=== PATIENT | male | born 1945 | race Caucasian/White ===

== ENCOUNTER 2017-02-08 20:04 | Inpatient (IN) | payer MEDICARE ==
[~2017-02-08] VITALS: Ht 172.7 cm; Wt 83.5 kg
[~2017-02-08 20:04] MED LIST: ACET-783; ALBU18HF2 IH; ATOR20TA27 PO; GLIM2TAB3 PO; ISOS30TA6 PO; LISI-621 PO; METO-64 PO; OFLO5DRO OP
--- OUTSIDE RECORDS SUMMARY | 2017-02-08 20:11 | XMS REPORT | Referral Summary ---
Author Author [facility] Organization [facility] Address Unknown Phone Unavailable Care Team Providers Care Retail Team Member Name Role Phone Monika sIsa Primary Care Physician [phone] Encounter [facility] [id number] Date(s): 01/08/17 - 01/08/17 [facility] [address] [place] [address] Discharge Diagnosis: Carotid artery stenosis, unilateral Discharge Diagnosis: Emphysema lung Discharge Diagnosis: Diabetes mellitus, type II Discharge Diagnosis: Pure hypercholesterolemia Discharge Diagnosis: Benign essential hypertension Discharge Diagnosis: Occlusion and stenosis of right carotid artery Discharge Diagnosis: CAD (coronary artery disease) Discharge Disposition: 01-Home or Self Care Attending Physician: Chang Issa MD Admitting Physician: Chang Issa MD Vital Signs Most recent to 1 oldest [Reference Range]: Temperature Tympanic 36.0 degC [36.6-38.1 degC] *LOW* (01/08/17 8:50 AM) Peripheral Pulse 72 bpm Rate [60-100 bpm] (01/08/17 8:50 AM) Respiratory Rate 16 br/min [14-20 br/min] (01/08/17 8:50 AM) Blood Pressure 154/74 mmHg [90-140/60-90 mmHg] *HI* (01/08/17 8:50 AM) Problem List Condition Effective Dates Status Health Status Informant Benign essential Active hypertension (disorder)(Confirmed ) Cardiac Active disorder(Confirmed)1 Carotid artery Active stenosis, unilateral(Confirmed ) Cerebrovascular Resolved accident(Confirmed) COPD (chronic Resolved obstructive pulmonary disease)(Confirmed) Chronic pain of Active multiple joints(Confirmed) CAD (coronary artery Active disease)(Confirmed) Diverticulitis(Confi Resolved rmed) Hx of Active CABG(Confirmed) Hyperlipidemia(Confi Resolved rmed) Hypertension(Confirm Resolved ed) Emphysema Active NEC(Confirmed) Pure Active hypercholesterolemia (disorder)(Confirmed ) Seizure Resolved disorder(Confirmed) Tremors of nervous Resolved system(Confirmed) Diabetes mellitus, Active type II(Confirmed) Type 2 diabetes Active mellitus(Confirmed) 1Problem added automatically by system based on initiation of Cardiac Output/ Ineffective Cardiac Perfusion Plan of Care Allergies, Adverse Reactions, Alerts No Known Medication Allergies Medications amLODIPine 5 mg oral tablet 5 mg 1 tabs, Oral, BID, # 180 tabs, 3 Refill(s), Pharmacy: [id number], 1 tabs Oral BID Start Date: 03/20/16 Status: Ordered aspirin 81 mg oral delayed release tablet 81 mg 1 tabs, Oral, Daily, 0 Refill(s) Start Date: 06/23/15 Status: Ordered atorvastatin 40 mg oral tablet 40 mg 1 tabs, Oral, Daily, # 90 tabs, 0 Refill(s), Pharmacy: [facility] [id number], 1 tabs Oral Daily Start Date: 10/23/16 Status: Ordered glimepiride 4 mg oral tablet 4 mg 1 tabs, Oral, Daily, # 90 tabs, 3 Refill(s), Pharmacy: [facility] [id number], 1 tabs Oral Daily Start Date: 01/08/17 Status: Ordered lisinopril 20 mg oral tablet See Instructions, TAKE ONE TABLET BY MOUTH ONCE DAILY, # 90 tabs, 1 Refill(s), eRx: [facility] [id number], TAKE ONE TABLET BY MOUTH ONCE DAILY Start Date: 07/17/16 Status: Ordered metoprolol succinate 100 mg oral tablet, extended release 100 mg 1 tabs, Oral, Daily, # 90 tabs, 1 Refill(s), Pharmacy: [facility] [id number] Start Date: 01/15/16 Stop Date: 07/13/16 Status: Ordered nitroglycerin 0.4 mg sublingual tablet 0.4 mg 1 tabs, SubLingual, q5min, as needed for chest pain, # 25 tabs, 3 Refill( s), Pharmacy: [facility] [id number], 1 tabs SubLingual q5min,PRN:as needed for chest pain Start Date: 04/18/15 Status: Ordered Stiolto Respimat 2.5 mcg-2.5 mcg inhalation aerosol See Instructions, INHALE TWO PUFFS BY MOUTH EVERY 24 HOURS, # 4 unknown unit, eRx: [facility] [id number], INHALE TWO PUFFS BY MOUTH EVERY 24 HOURS Start Date: 06/27/16 Status: Ordered Tylenol Extra Strength PM 500 mg-25 mg oral tablet 4 tabs, Oral, BID, Pain Mild (1-3), 1-4 Mostly at bedtime., 0 Refill(s) Start Date: 06/13/15 Status: Ordered Ventolin HFA 90 mcg/inh inhalation aerosol See Instructions, INHALE TWO PUFFS BY MOUTH 4 TIMES DAILY NEEDED, # 3 Each, 2 Refill(s), Pharmacy: [id number], INHALE TWO PUFFS BY MOUTH 4 TIMES DAILY NEEDED Start Date: 02/04/16 Status: Ordered Xopenex 0.63 mg/3 mL inhalation solution 0.63 mg 3 mL, NEB, q8hr, dx copd J44.1, # 48 Each, 3 Refill(s), Pharmacy: [id number], 3 mL NEB q8hr,Instr:dx copd J44.1 Start Date: 06/27/16 Status: Ordered Results Chemistry Most recent to 1 oldest [Reference Range]: Sodium Lvl [135-144 138 mEq/L mEq/L] (01/08/17 9:45 AM) Potassium Lvl 4.1 mEq/L [3.5-5.2 mEq/L] (01/08/17 9:45 AM) Chloride [99-111 106 mEq/L mEq/L] (01/08/17 9:45 AM) CO2 [23-31 mEq/L] 26 mEq/L (01/08/17 9:45 AM) AGAP [3-20] 6 (01/08/17 9:45 AM) BUN [8-26 mg/dL] 18 mg/dL (01/08/17 9:45 AM) Glucose Lvl [70-99 120 mg/dL mg/dL] *HI* (01/08/17 9:45 AM) Creatinine Lvl 0.86 mg/dL [0.72-1.25 mg/dL] (01/08/17 9:45 AM) eGFR [>60 mL/min] >60 mL/min 1 (01/08/17 9:45 AM) Calcium Lvl 9.7 mg/dL 2 [8.4-10.2 mg/dL] (01/08/17 9:45 AM) Albumin Lvl [3.4-4.8 4.4 gm/dL gm/dL] (01/08/17 9:45 AM) Total Protein 6.9 gm/dL [6.0-7.6 gm/dL] (01/08/17 9:45 AM) Globulin [1.8-4.0 2.5 gm/dL gm/dL] (01/08/17 9:45 AM) ALT [0-55 U/L] 46 U/L (01/08/17 9:45 AM) AST [5-34 U/L] 23 U/L (01/08/17 9:45 AM) Alk Phos [40-150 99 U/L U/L] (01/08/17 9:45 AM) Bili Total [0.2-1.2 0.7 mg/dL mg/dL] (01/08/17 9:45 AM) Chol [0-199 mg/dL] 140 mg/dL (01/08/17 9:45 AM) Trig [0-149 mg/dL] 139 mg/dL (01/08/17 9:45 AM) HDL [40-84 mg/dL] 42 mg/dL (01/08/17 9:45 AM) LDL [0-130 mg/dL] 70 mg/dL (01/08/17 9:45 AM) VLDL Cholesterol 28 mg/dL [0-28 mg/dL] (01/08/17 9:45 AM) Cardiac Risk 3.3 [0.0-5.7] (01/08/17 9:45 AM) Hgb A1c [4.1-5.6 %] 6.5 % *HI* (01/08/17 9:45 AM) eAvg Glucose 139.9 mg/dL (01/08/17 9:45 AM) 1Result Comment: Multiply eGFR results by 1.21 for race. 2Result Comment: Please note reference range change effective 12/26/2016. Immunizations Given and Recorded Vaccine Date Status Refusal Reason pneumococcal 23-polyvalent vaccine 01/08/17 Given Procedures Procedure Date Related Diagnosis Body Site Bypass Graft Coronary Artery1 06/19/15 Cholecystectomy 08/12/10 Colon resection & colostomy due to ruptured 2001 diverticulum Colostomy-reversal 2001 Arthroscopic meniscectomy2 Inguinal hernia-rt Resection, colon Rotator cuff 1auto-populated from documented surgical case 2pt does not recall which knee Social History Social History Type Response Smoking Status Former smoker; Type: Cigarettes; Tobacco use per day: 1 Pack ; Number of years: 501 1quit 6 yrs ago Assessment and Plan Extracted from: Title: Office Visit Note Author: Chang Issa MD Date: 01/08/17 Assessment/Plan 1.CAD (coronary artery disease) Chronic and stable with no signs of angina or ischemia. No change in current treatment is recommended. He may exercise without restriction if he develops chest pain he shouldlet us know. Ordered: Comprehensive Metabolic Panel Lipid Panel Office Visit Level 4 Est 60261 2.Carotid artery stenosis, unilateral, Chronic relatively stable no change in current treatment at this time. Occlusion and stenosis of right carotid artery Ordered: Comprehensive Metabolic Panel Lipid Panel Office Visit Level 4 Est 97818 3.Diabetes mellitus, type II Glucometers of been stable we will checkfasting lab today along with an A1c. No change in current treatment is recommended. I did changes glimepiride to 4 mg be taken once in the morning instead of 2 tablets of 2 mg daily. Six-month follow-up encouraged. Will let them know of lab is problematic. Ordered: Comprehensive Metabolic Panel Hemoglobin A1c Lipid Panel Office Visit Level 4 Est 97009 4.Pure hypercholesterolemia Chronic appears relatively stable. Fasting labs ordered for today. Ordered: Comprehensive Metabolic Panel Lipid Panel Office Visit Level 4 Est 57922 5.Benign essential hypertension Blood pressures well-controlled no change in current treatment is recommended. Ordered: Comprehensive Metabolic Panel Lipid Panel Office Visit Level 4 Est 68014 6.Emphysema lung Chronic and stable on current treatment. He continues to follow up with pulmonology as well. No change in current treatment is recommended. I did recommendpneumonia vaccination. He initially refused we talked about the rationale in light of hisother chronic health problems and he ultimately agreed to have a Pneumovax today. That was administered.
--- OUTSIDE RECORDS SUMMARY | 2017-02-08 20:11 | XMS REPORT | Continuity of Care Document ---
Author Author [facility] Organization [facility] Address Unknown Phone Unavailable Care Team Providers Care Hand Drawer In Helper Name Role Phone MARISOL SINGH MD Primary Care Physician [phone] Insurance Providers Guarantor Alicia Parham Address [address] [place] [address] Email [email or web address] [facility] [employer]hum[employer] Gold Hmo Policy Number [id number] Subscriber's Name PrasadAlicia Eaton Relationship 18 Self Chief Complaint and Reason for Visit Chief Complaint Eye Problems Reason for Visit [id number] Problems Active Problems Medical Problem Onset Date Status Finger laceration Unknown Acute Past Problems Medical Problem Onset Date Acute right eye pain Unknown Medications Current Home Medications Medication Dose Units Route Directions Days Qty Instructions Start Date Acetaminophen (Tylenol) 325 Mg Tablet As Needed 03/30/11 Albuterol Sulfate (Ventolin Hfa) 18 Gm Hfa.aer.ad 18 Gm Inhalation As Needed 08/18/12 Atorvastatin Calcium 20 Mg Tablet 20 Mg Oral Daily 09/14/12 Glimepiride 2 Mg Tablet 1 Tab Oral Give With Breakfast BEST TAKEN WITH BREAKFAST. 06/13/15 Isosorbide Mononitrate (Isosorbide Mononitrate Er) 30 Mg Tab.er.24h 1 Tab Oral Daily 06/13/15 Lisinopril 20 Mg Tablet 1 Tab Oral Daily 06/13/15 Metoprolol Succinate (Toprol Xl) 50 Mg Tab.sr.24h 50 Mg Oral Daily 09/14/12 Ofloxacin 5 Ml Drops 1 Drop Ophthalmic Every 2-4 Hours 5 Days [address] Todd Barrow [facility] [address] [phone] 09/17/16 Past Home Medications Medication Directions Ordered Status Amlodipine Besylate/Benazepril (Amlodipine-Benazepril 10-40 Mg) 1 Each Capsule , 1 Each Oral Daily 08/18/12 Discontinued Amlodipine Besylate/Benazepril (Lotrel 10/20 Capsule) 1 Cap Capsule, 1 Cap Oral Daily 08/12/10 Discontinued Aspirin 325 Mg Tablet, 650 Mg Oral Daily 08/12/10 Discontinued Chlorthalidone 25 Mg Tablet, 25 Mg Oral Daily 08/18/12 Discontinued Clopidogrel Bisulfate (Plavix) 75 Mg Tablet, 75 Mg Oral Daily 09/14/12 Discontinued Hydrocodone Bit/Acetaminophen (Lortab 5) 1 Tab Tablet, 1 Tab Oral As Needed 04/23/11 Discontinued Hydrocodone Bit/Acetaminophen (Lortab 7.5-500 Tablet) 1 Tab Tablet, 1 Tab Oral As Needed 08/12/10 Discontinued Lortab 7.5 , 01/31/09 Discontinued Lotrel , Daily 01/31/09 Discontinued Social History Social History Problem Response Recorded Date/Time Onset Date Status Chewing Tobacco Status No 09/18/2012 9:32am Not Applicable Not Applicable Hx Substance Use No 04/02/2016 11:30pm Not Applicable Not Applicable Hx Alcohol Use No 04/02/2016 11:30pm Not Applicable Not Applicable Has the pt used tobacco in the last 12 months No 06/13/2015 12:34pm Not Applicable Not Applicable Tobacco Usage none 04/02/2016 11:33pm Not Applicable Not Applicable Hospital Discharge Instructions No hospital discharge instructions. Plan of Care Discharge Date 09/17/16 10:43am Disposition 01 DISCHARGED HOME, SELF-CARE Condition at Discharge Stable Instructions/Education Provided DI for Red Eye How to Use Eyedrops DI for Foreign Body in the Eye Prescriptions See Medication Section Referrals MARISOL SINGH MD Address: [address] [place] [id number] EARL HAWK MD Address: [address] [place] [address] [phone] Additional Instructions/Education Call eye Dr to follow this week. Use Ocuflox drops as directed in right eye. If vision worsening or pain worsening, go to Dr or Emergency Department. Functional Status No functional status results. Allergies, Adverse Reactions, Alerts Allergen Type Severity Reaction Status Last Updated No Known Drug Allergies Allergy Unknown Active 09/17/16 Immunizations Query Response on File Recorded Date/Time Hx Influenza Vaccination No 06/13/15 12:34pm Hx Pneumococcal Vaccination No 06/13/15 12:34pm Hx Influenza Vaccination No 06/13/15 12:34pm Influenza Vaccine Hx CURRENT 09/17/16 10:09am Tdap Vaccine Hx UNKNOWN 04/02/16 11:29pm Vital Signs Acute Vital Signs Vital Response Date/Time Temperature (Fahrenheit) 96.2 deg F (96.8 - 99.1) 09/17/2016 10:07am Temperature (Calculated Celsius) 35.56905 degrees C (36.0 - 37.3) 09/17/2016 10:07am Pulse Rate (adult) 60 bpm (60 - 100) 09/17/2016 10:07am Respiratory Rate 24 breaths/min (10 - 20) 09/17/2016 10:07am O2 Sat by Pulse Oximetry 95 % (90 - 100) 09/17/2016 10:07am Blood Pressure 146/78 mm Hg 09/17/2016 10:07am Height (Inches) 67.20 inches 09/17/2016 10:07am Weight (Kilograms) 89.600 kg 09/17/2016 10:07am Body Mass Index (BMI) 30.0 09/17/2016 10:07am Results No known relevant diagnostic tests, laboratory data and/or discharge summary. Procedures Procedure Status Date Provider(s) EEG AWAKE AND ASLEEP Completed 07/29/16 Encounters Encounter Location Arrival/Admit Date Discharge/Depart Date Attending Provider Departed Emergency Room [facility] 09/17/16 9:59am 09/17/16 10: 43am KRYSTAL OSORIO APRN Registered Clinic [facility] 07/29/16 1:58pm MICHAEL WILCOX MD Recent Diagnosis
--- OUTSIDE RECORDS SUMMARY | 2017-02-08 20:12 | XMS REPORT | Continuity of Care Document ---
Author Author [facility] Organization [facility] Address Unknown Phone Unavailable Allergies Active Description Code Type Severity Reaction Onset Reported/Identified Relationship to Patient Clinical Status Yes No Known Medication Allergies NKMA N/A N/A 05/05/2014 Yes No Known Medication Allergies NKMA N/A N/A 05/05/2014 Medications Medication Packaging Start Date Stop Date Route Dosage Sig vardenafil(Levitra 20 mg oral tablet) 1 tabs 05/04/20142013 Oral 20 mg 1 tabs, Oral, Daily, PRN: as needed for erectile dysfunction meclizine(Antivert 50 mg oral tablet) 1 tabs 05/04/20142013 Oral 50 mg 1 tabs, Oral, BID, 30 tabs, PRN: as needed for nausea/vomiting metFORMIN(Glumetza 500 mg oral tablet, extended release) 2 tabs 05/04/2014 05/05/2014 Oral 1,000 mg 2 tabs, Oral, BID amLODIPine(amLODIPine 10 mg oral tablet) 1 tabs 05/04/2014 Oral 10 mg 1 tabs, Oral, Daily levETIRAcetam(Keppra 500 mg oral tablet) 0.4 tabs 05/04/2014 Oral 200 mg 0.4 tabs, Oral, QID atorvastatin(atorvastatin 20 mg oral tablet) 1 tabs 05/04/2014 02/27/2015 Oral 20 mg 1 tabs, Oral, Bedtime (once a day) clopidogrel(Plavix 75 mg oral tablet) 1 tabs 05/04/20142013 Oral 75 mg 1 tabs, Oral, Daily albuterol(Ventolin HFA 90 mcg/inh inhalation aerosol) 2 puffs 05/04/2014 07/03/2014 Inhalation 2 puffs, Inhalation, QID, PRN: as needed for wheezing glimepiride(glimepiride 2 mg oral tablet) 1 tabs 05/05/201410/2015 Oral 2 mg 1 tabs, Oral, Daily, 30 tabs albuterol(Ventolin HFA 90 mcg/inh inhalation aerosol) 07/03/2014 07/31/2014 See Instructions, INHALE TWO PUFFS 4 TIMES DAILY NEEDED, 18 unknown unit albuterol(Ventolin HFA 90 mcg/inh inhalation aerosol) 07/31/2014 10/24/2014 See Instructions, INHALE TWO PUFFS 4 TIMES DAILY NEEDED, 18 unknown unit aspirin(Aspir-Low 81 mg oral delayed release tablet) 1 tabs 09/20/2014 06/13/2015 Oral 81 mg 1 tabs, Oral, Daily, 30 tabs albuterol(Ventolin HFA 90 mcg/inh inhalation aerosol) 10/24/2014 12/04/2014 See Instructions, INHALE TWO PUFFS 4 TIMES DAILY NEEDED, 18 unknown unit sildenafil(Viagra 100 mg oral tablet) 1 tabs 02/22/20152014 Oral 100 mg 1 tabs, Oral, Daily, 2 tabs, PRN: as needed for erectile dysfunction atorvastatin(atorvastatin 40 mg oral tablet) 1 tabs 04/18/2015 06/13/2015 Oral 40 mg 40 mg=1 tabs, Oral, Daily, 90 tabs, 6 Refill(s) lisinopril(lisinopril 10 mg oral tablet) 1 tabs 04/18/2015 Oral 10 mg 10 mg=1 tabs, Oral, Daily, 90 tabs, 6 Refill(s) clopidogrel(Plavix 75 mg oral tablet) 1 tabs 04/18/20152014 Oral 75 mg 75 mg=1 tabs, Oral, Daily, 90 tabs, 6 Refill(s) nitroglycerin(nitroglycerin 0.4 mg sublingual tablet) 1 tabs 04/18/2015 SubLingual 0.4 mg 0.4 mg=1 tabs, SubLingual, q5min, PRN: as needed for chest pain, 25 tabs, 3 Refill(s) clopidogrel(Plavix 75 mg oral tablet) 1 tabs 04/18/20152014 Oral 75 mg 75 mg=1 tabs, Oral, Daily, 90 tabs, 6 Refill(s) isosorbide mononitrate(Imdur 30 mg oral tablet, extended release) 1 tabs 201406/13/2015 Oral 30 mg 30 mg=1 tabs, Oral, qAM, 90 tabs, 0 Refill(s) lisinopril(lisinopril 20 mg oral tablet) 1 tabs 05/22/2015 Oral 20 mg 20 mg=1 tabs, Oral, Daily, for 30 days, 30 tabs, 6 Refill(s) atorvastatin(atorvastatin 40 mg oral tablet) 1 tabs 06/13/2015 07/25/2016 Oral 40 mg 40 mg=1 tabs, Oral, Bedtime (once a day), 0 Refill(s) isosorbide mononitrate(isosorbide mononitrate 30 mg oral tablet, extended release) 1 tabs 06/13/2015 06/23/2015 Oral 30 mg 30 mg=1 tabs, Oral, qAM, 0 Refill(s) lisinopril(lisinopril 20 mg oral tablet) 1 tabs 06/13/201506/2016 Oral 20 mg 20 mg=1 tabs, Oral, Daily, 0 Refill(s) clopidogrel(clopidogrel 75 mg oral tablet) 1 tabs 06/13/2015 Oral 75 mg 75 mg=1 tabs, Oral, Daily, 0 Refill(s) glimepiride(glimepiride 2 mg oral tablet) 2 tabs 06/13/2015 Oral 4 mg 4 mg=2 tabs, Oral, BID, 0 Refill(s) albuterol(Ventolin HFA 90 mcg/inh inhalation aerosol) 2 puffs 06/13/2015 07/09/2015 Inhalation 2 puffs, Inhalation, QID, PRN: as needed for wheezing, 0 Refill(s) labetalol(labetalol) 1 tabs 06/13/2015 06/19/2015 Oral 100 mg 100 mg=1 tabs, Oral, BID acetaminophen-diphenhydrAMINE(Tylenol Extra Strength PM 500 mg-25 mg oral tablet) 4 tabs 06/13/2015 Oral 4 tabs, Oral, BID, 1-4 Mostly at bedtime., PRN: Pain Mild (1-3), 0 Refill(s) amLODIPine(Norvasc) 1 tabs 06/13/2015 06/19/2015 Oral 5 mg 5 mg=1 tabs, Oral, Daily pseudoephedrine(Sudafed) 06/13/2015 09/27/2015 Oral 30 mg 30 mg , Oral, q4hr, PRN: congestion, 0 Refill(s) morphine(morphine) 1 mL 06/13/2015 06/19/2015 IV Push 2 mg 2 mg= 1 mL, IV Push, q5min, PRN: Angina/Chest Pain nitroglycerin(nitroglycerin) 1 tabs 06/13/2015 06/19/2015 SubLingual 0.4 mg 0.4 mg=1 tabs, SubLingual, q5min, PRN: Angina/Chest Pain enoxaparin(Lovenox) 0.9 mL 06/13/2015 06/15/2015 SubCutaneous 90 mg 90 mg=0.9 mL, SubCutaneous, q12hr aspirin(aspirin) 1 tabs 06/13/2015 06/19/2015 Oral 81 mg 81 mg= 1 tabs, Oral, Daily atorvastatin(atorvastatin) 1 tabs 06/13/2015 06/19/2015 Oral 40 mg 40 mg=1 tabs, Oral, Bedtime (once a day) isosorbide mononitrate(isosorbide mononitrate) 1 tabs 06/13/2015 06/19/2015 Oral 30 mg 30 mg=1 tabs, Oral, qAM glimepiride(glimepiride) 1 tabs 06/13/2015 06/18/2015 Oral 2 mg 2 mg=1 tabs, Oral, Daily albuterol(albuterol CFC free 90 mcg/inh inhalation aerosol ) 2 puffs 06/14/2015 06/15/2015 Inhalation 180 mcg 180 mcg=2 puffs, Inhalation, q4hr , PRN: Bronchospasms hydrALAZINE(hydrALAZINE) 0.5 mL 06/14/2015 06/19/2015 IV Push 10 mg 10 mg=0.5 mL, IV Push, q4hr, PRN: Hypertension/High Blood Pressure polyethylene glycol 3350(MiraLax) 1 packets 06/15/20152014 Oral 17 g 17 g=1 packets, Oral, BID allopurinol(Zyloprim) 2 tabs 06/17/2015 06/19/2015 Oral 600 mg 600 mg=2 tabs, Oral, Once acetaminophen(acetaminophen) 1 supp 06/17/2015 06/19/2015 Rectal 650 mg 650 mg=1 supp, Rectal, q4hr, PRN: Pain Mild (1-3) zolpidem(Ambien) 1 tabs 06/17/2015 06/19/2015 Oral 5 mg 5 mg=1 tabs, Oral, Bedtime (once a day), PRN: Insomnia insulin aspart(NovoLOG) 0.07 mL 06/18/2015 06/18/2015 SubCutaneous 7 units 7 units=0.07 mL, SubCutaneous, Once insulin aspart(NovoLOG) 0.07 mL 06/18/2015 06/18/2015 SubCutaneous 7 units 7 units=0.07 mL, SubCutaneous, Once metoclopramide(Reglan) 1 tabs 06/19/2015 06/23/2015 IV Push 10 mg 10 mg=1 tabs, IV Push, q6hr, PRN: Nausea HYDROcodone-acetaminophen(Flushing 5 mg-325 mg oral tablet) 06/19/2015 06/23/2015 Oral 1-2 tabs, Oral, q4hr, PRN: Pain Moderate (4-6) docusate(Colace) 2 caps 06/19/2015 06/23/2015 Oral 200 mg 200 mg=2 caps, Oral, Daily albuterol(albuterol CFC free 90 mcg/inh inhalation aerosol ) 6 puffs 06/19/2015 06/19/2015 Inhalation 540 mcg 540 mcg=6 puffs, Inhalation, q4hr (scheduled), PRN: Wheezing morphine(morphine) 06/19/2015 06/19/2015 IV Push 2-4 mg, IV Push, q2hr, PRN: Pain Severe (7-10) ondansetron(Zofran) 2 mL 06/19/2015 06/23/2015 IV Push 4 mg 4 mg= 2 mL, IV Push, q6hr, PRN: Nausea glucagon(glucagon) 1 mL 06/19/2015 06/21/2015 IntraMuscular 1 mg 1 mg=1 mL, IntraMuscular, As Indicated, PRN: Hypoglycemia/Low Blood Sugar Al hydroxide/Mg hydroxide/simethicone(Maalox Advanced Maximum Strength oral suspension) 15 mL 06/19/2015 06/23/2015 Oral 15 mL, Oral, q4hr, PRN: GERD/Heartburn Sodium Chloride 0.9%(Sodium Chloride 0.9% 250 mL) 250 mL 06/19/2015 06/21/2015 IV 10 mL/hr, IV polyethylene glycol 3350(MiraLax) 1 packets 06/19/20152014 Oral 17 g 17 g=1 packets, Oral, Daily albuterol(albuterol 5 mg/mL (0.5%) inhalation solution) 0.5 mL 06/19/2015 06/19/2015 NEB 2.5 mg 2.5 mg=0.5 mL, NEB, q4hr (scheduled), PRN: Wheezing Dextrose 50% in Water(Dextrose 50% in Water Injection) 25 mL 06/19/2015 06/21/2015 IV Push 12.5 g 12.5 g=25 mL, IV Push, q15min, PRN: Hypoglycemia/Low Blood Sugar Dextrose 10% in Water(Dextrose 10% in Water 250 mL) 250 mL 06/19/2015 06/21/2015 IV 50 mL/hr, IV senna(Senokot) 1 tabs 06/19/2015 06/23/2015 Oral 8.6 mg 8.6 mg=1 tabs, Oral, BID famotidine(Pepcid) 2 mL 06/19/2015 06/21/2015 IV Push 20 mg 20 mg =2 mL, IV Push, q12hr acetaminophen(acetaminophen) 1 supp 06/19/2015 06/21/2015 Rectal 650 mg 650 mg=1 supp, Rectal, q4hr, PRN: Fever aspirin(aspirin) 1 tabs 06/19/2015 06/23/2015 Oral 81 mg 81 mg= 1 tabs, Oral, Daily albuterol(albuterol 5 mg/mL (0.5%) inhalation solution) 0.5 mL 06/19/2015 06/20/2015 NEB 2.5 mg 2.5 mg=0.5 mL, NEB, q2hr (scheduled), PRN: Shortness of Breath/Wheezing HYDROmorphone(Dilaudid) 06/19/2015 06/23/2015 IV Push 0.5 mg- 1 mg, IV Push, q2hr, PRN: Pain Severe (7-10) ketorolac(Toradol) 1 mL 06/19/2015 06/19/2015 IV Push 15 mg 15 mg =1 mL, IV Push, Once ipratropium(ipratropium 500 mcg/2.5 mL inhalation solution ) 2.5 mL 06/20/2015 06/23/2015 NEB 0.5 mg 0.5 mg=2.5 mL, NEB, q2hr (scheduled), PRN: Other (See Comment) albuterol(albuterol 5 mg/mL (0.5%) inhalation solution) 0.5 mL 06/20/2015 06/23/2015 NEB 2.5 mg 2.5 mg=0.5 mL, NEB, q2hr (scheduled), PRN: Other (See Comment) ketorolac(Toradol) 1 mL 06/20/2015 06/21/2015 IV Push 15 mg 15 mg =1 mL, IV Push, q6hr atorvastatin(Lipitor) 1 tabs 06/20/2015 06/23/2015 Oral 10 mg 10 mg=1 tabs, Oral, Daily clopidogrel(Plavix) 1 tabs 06/20/2015 06/23/2015 Oral 75 mg 75 mg= 1 tabs, Oral, Daily insulin aspart(NovoLOG) 0.08 mL 06/20/2015 06/20/2015 SubCutaneous 8 units 8 units=0.08 mL, SubCutaneous, Once insulin aspart(NovoLOG) 0.08 mL 06/20/2015 06/21/2015 SubCutaneous 8 units 8 units=0.08 mL, SubCutaneous, With Dinner furosemide(Lasix) 2 mL 06/20/2015 06/20/2015 IV Push 20 mg 20 mg =2 mL, IV Push, Once potassium chloride(potassium chloride 10 mEq oral tablet, extended release) 1 tabs 06/20/2015 06/20/2015 Oral 10 mEq 10 mEq=1 tabs, Oral, Once insulin regular(insulin regular 100 units/mL human recombinant injectable solution) 0.04 mL 06/20/2015 06/21/2015 IV Push 4 units 4 units=0.04 mL, IV Push, Once insulin detemir(Levemir) 0.3 mL 06/20/2015 06/22/2015 SubCutaneous 30 units 30 units=0.3 mL, SubCutaneous, Bedtime (once a day) insulin aspart(NovoLOG) 0.1 mL 06/20/2015 06/23/2015 SubCutaneous 10 units 10 units=0.1 mL, SubCutaneous, TIDWM metoprolol(metoprolol succinate 50 mg oral tablet, extended release) 1 tabs 06/21/2015 06/21/2015 Oral 50 mg 50 mg=1 tabs, Oral, Once metoprolol(metoprolol succinate 100 mg oral tablet, extended release) 1 tabs 06/21/2015 06/23/2015 Oral 100 mg 100 mg=1 tabs, Oral, Daily lisinopril(lisinopril) 1 tabs 06/21/2015 06/23/2015 Oral 20 mg 20 mg=1 tabs, Oral, Daily baclofen(baclofen) 0.5 tabs 06/21/2015 06/22/2015 Oral 5 mg 5 mg=0.5 tabs, Oral, BID furosemide(Lasix) 2 mL 06/21/2015 06/23/2015 IV Push 20 mg 20 mg =2 mL, IV Push, q12hr potassium chloride(potassium chloride 20 mEq oral tablet, extended release) 1 tabs 06/21/2015 06/23/2015 Oral 20 mEq 20 mEq=1 tabs, Oral, BID nitroglycerin(Nitrostat 0.4 mg sublingual tablet) 1 tabs 06/21/2015 06/23/2015 SubLingual 0.4 mg 0.4 mg=1 tabs, SubLingual, q5min, PRN: Angina/ Chest Pain amLODIPine(amLODIPine) 1 tabs 06/22/2015 06/23/2015 Oral 5 mg 5 mg=1 tabs, Oral, Daily insulin aspart(NovoLOG) 0.12 mL 06/22/2015 06/22/2015 SubCutaneous 12 units 12 units=0.12 mL, SubCutaneous, Once sitaGLIPtin(Januvia) 1 tabs 06/22/2015 06/23/2015 Oral 100 mg 100 mg=1 tabs, Oral, Daily glimepiride(Amaryl) 1 tabs 06/22/2015 06/23/2015 Oral 2 mg 2 mg=1 tabs, Oral, With Breakfast insulin detemir(Levemir) 0.1 mL 06/22/2015 06/23/2015 SubCutaneous 10 units 10 units=0.1 mL, SubCutaneous, Bedtime (once a day) lactulose(lactulose) 30 mL 06/22/2015 06/23/2015 Oral 20 g 20 g= 30 mL, Oral, TID HYDROcodone-acetaminophen(Flushing 5 mg-325 mg oral tablet) 06/23/2015 07/04/2015 Oral 1-2 tabs, Oral, q4hr, PRN: Pain Moderate (4-6), 0 Refill (s) aspirin(aspirin 81 mg oral delayed release tablet) 1 tabs 06/23/2015 Oral 81 mg 81 mg=1 tabs, Oral, Daily, 0 Refill(s) amLODIPine(amLODIPine 5 mg oral tablet) 1 tabs 06/23/201512/31 Oral 5 mg 5 mg=1 tabs, Oral, Daily, 0 Refill(s) acetaminophen(acetaminophen 325 mg oral tablet) 2 tabs 06/23/2015 12/17/2015 Oral 650 mg 650 mg=2 tabs, Oral, q4hr, PRN: Fever, 0 Refill(s) sitaGLIPtin(Januvia 100 mg oral tablet) 1 tabs 06/23/201506/23 Oral 100 mg 100 mg=1 tabs, Oral, Daily, 0 Refill(s) sitaGLIPtin(Januvia 100 mg oral tablet) 1 tabs 06/23/201508/03 Oral 100 mg 100 mg=1 tabs, Oral, Daily, 30 tabs, 0 Refill(s) HYDROcodone-acetaminophen(Flushing 5 mg-325 mg oral tablet) 1 tabs 06/29/2015 07/29/2015 Oral 1 tabs, Oral, q6hr, for 30 days, PRN: as needed for pain, 120 tabs, 0 Refill(s) ALPRAZolam(Xanax 0.25 mg oral tablet) 1 tabs 07/10/20152014 Oral 0.25 mg 0.25 mg=1 tabs, Oral, BID, for 14 days, PRN: as needed for anxiety, 28 tabs, 0 Refill(s) HYDROcodone-acetaminophen(Flushing 5 mg-325 mg oral tablet) 1 tabs 08/31/2015 09/10/2015 Oral 1 tabs, Oral, TID, for 10 days, PRN: as needed for pain, 30 tabs, 0 Refill(s) metoprolol(metoprolol succinate 100 mg oral tablet, extended release) 1 tabs 09/27/2015 12/31/2015 Oral 100 mg 100 mg=1 tabs, Oral, Daily , for 90 days, 90 tabs, 2 Refill(s) HYDROcodone-acetaminophen(Flushing 5 mg-325 mg oral tablet) 1 tabs 09/27/2015 10/27/2015 Oral 1 tabs, Oral, BID, for 30 days, 60 tabs, 0 Refill(s ) indapamide(indapamide 1.25 mg oral tablet) 1 tabs 10/03/2015 Oral 1.25 mg 1.25 mg=1 tabs, Oral, Every other day, 30 tabs, 5 Refill(s) metoprolol(metoprolol succinate 100 mg oral tablet, extended release) 1 tabs 12/31/2015 01/15/2016 Oral 100 mg 100 mg=1 tabs, Oral, Daily , for 90 days, 90 tabs, 2 Refill(s) amLODIPine(amLODIPine 5 mg oral tablet) 1 tabs 12/31/201503/20 Oral 5 mg 5 mg=1 tabs, Oral, Daily, 90 tabs, 1 Refill(s) lisinopril(lisinopril 20 mg oral tablet) 1 tabs 12/31/2015 Oral 20 mg 20 mg=1 tabs, Oral, Daily, 90 tabs, 1 Refill(s) metoprolol(metoprolol succinate 100 mg oral tablet, extended release) 1 tabs 01/15/2016 01/22/2017 Oral 100 mg 100 mg=1 tabs, Oral, Daily , for 90 days, 90 tabs, 1 Refill(s) lisinopril(lisinopril 20 mg oral tablet) 1 tabs 01/15/2016 Oral 20 mg 20 mg=1 tabs, Oral, Daily, 90 tabs, 0 Refill(s) levalbuterol(Xopenex 0.63 mg/3 mL inhalation solution) 3 mL 05/07/2016 06/27/2016 NEB 0.63 mg 0.63 mg=3 mL, NEB, q8hr, dx copd J44.1, 48 Each, 3 Refill(s) tiotropium-olodaterol(Stiolto Respimat 2.5 mcg-2.5 mcg inhalation aerosol) 2 puffs 05/12/2016 06/27/2016 Inhalation 2 puffs, Inhalation, q24hr, 60 inhalers, 0 Refill(s) tiotropium-olodaterol(Stiolto Respimat 2.5 mcg-2.5 mcg inhalation aerosol) See Instructions, INHALE TWO PUFFS BY MOUTH EVERY 24 HOURS, 4 unknown unit lisinopril(lisinopril 20 mg oral tablet) 07/17/20162016 See Instructions, TAKE ONE TABLET BY MOUTH ONCE DAILY, 90 tabs, 1 Refill( s) glimepiride(glimepiride 4 mg oral tablet) 1 tabs 01/08/2017 Oral 4 mg 4 mg=1 tabs, Oral, Daily, 90 tabs, 3 Refill(s) pneumococcal 23-polyvalent vaccine(pneumococcal 23- polyvalent vaccine) 0.5 mL 01/08/2017 01/08/2017 IntraMuscular 0.5 mL, IntraMuscular , Once lisinopril(lisinopril 20 mg oral tablet) 01/22/2017 See Instructions, TAKE ONE TABLET BY MOUTH ONCE DAILY, 90 tabs, 1 Refill(s) traMADol(Ultram 50 mg oral tablet) 1 tabs 02/04/2017 Oral 50 mg 50 mg=1 tabs, Oral, q6hr, 60 tabs, 0 Refill(s) benzonatate(Tessalon Perles 100 mg oral capsule) 1 caps 02/04/2017 02/18/2017 Oral 100 mg 100 mg=1 caps, Oral, TID, for 14 days, PRN: as needed for cough, 42 caps, 0 Refill(s) azithromycin(Zithromax 250 mg oral tablet) 1 packets 02/04/2017 02/04/2017 Oral 1 packets, Oral, Once, as directed on package labeling, 6 tabs , 0 Refill(s) Problems Date Dx Coded Attending Type Code Diagnosis Diagnosed By 06/26/2015 Vini Joya MD Final 250.00 Diabetes mellitus without mention of complication, type II or unspecified t 06/26/2015 Vini Joya MD Final 272.0 PURE HYPERCHOLESTEROLEMIA 06/26/2015 Vini Joya MD Final 272.4 OTHER AND UNSPECIFIED HYPERLIPIDEMIA 06/26/2015 Vini Joya MD Final 285.1 ACUTE POSTHEMORRHAGIC ANEMIA 06/26/2015 Vini Joya MD Final 298.9 UNSPECIFIED PSYCHOSIS 06/26/2015 Vini Joya MD Final 401.1 BENIGN ESSENTIAL HYPERTENSION 06/26/2015 Vini Joya MD Final 414.01 CORONARY ATHEROSCLEROSIS OF [place] CORONARY ARTERY 06/26/2015 Vini Joya MD Final 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 06/26/2015 Vini Joya MD Final 440.0 ATHEROSCLEROSIS OF [place] 06/26/2015 Vini Joya MD Final 492.8 OTHER EMPHYSEMA 06/26/2015 Vini Joya MD Final 728.85 SPASM OF MUSCLE 06/26/2015 Vini Joya MD Final 793.11 Solitary Pulmonary Nodule Procedures Code Description Performed By Performed On 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 06/19/2015 Results Test Result Range Hemoglobin A1C - 01/08/17 09:45 Hemoglobin A1C 6.5 % 4.1-5.6 Estimated Average Glucose - 01/08/17 09:45 Estimated Average Glucose 139.9 mg/dL Comprehensive Metabolic Panel (CMP) - 01/08/17 09:45 Albumin 4.4 g/dL 3.4-4.8 Alkaline Phosphatase 99 U/L 40-150 ALT (SGPT) 46 U/L 0-55 Anion Gap 6 NA 3-20 AST (SGOT) 23 U/L 5-34 Bilirubin Total 0.7 mg/dL 0.2-1.2 BUN 18 mg/dL 8-26 Calcium 9.7 mg/dL 8.4-10.2 Chloride 106 mEq/L 99-111 CO2 26 mEq/L 23-31 Creatinine 0.86 mg/dL 0.72-1.25 Globulin 2.5 g/dL 1.8-4.0 Glucose 120 mg/dL 70-99 Potassium 4.1 mEq/L 3.5-5.2 Protein 6.9 g/dL 6.0-7.6 Sodium 138 mEq/L 135-144 Lipid Panel - 01/08/17 09:45 Cardiac Risk 3.3 0.0-5.7 Cholesterol 140 mg/dL 0-199 HDL Cholesterol 42 mg/dL 40-84 LDL Cholesterol 70 mg/dL 0-130 Triglycerides 139 mg/dL 0-149 VLDL Cholesterol 28 mg/dL 0-28 eGFR - 01/08/17 09:45 eGFR >60 mL/min >60 Influenza A and B - 02/04/17 14:38 Influenza A Negative NA Negative Influenza B Negative NA Negative Encounters ACCT No. Visit Date/Time Discharge Status Pt. Type Provider Facility Loc./Unit Complaint [id number] 02/22/2014 07:58:00 02/22/2014 23 :59:59 CLS Outpatient [id number] 02/15/2014 13:00:00 02/15/2014 23 :59:59 CLS Outpatient [id number] 01/04/2014 08:50:00 01/04/2014 23 :59:59 CLS Outpatient
[2017-02-08] MEDS ORDERED: ATOR40TA64 PO (20:19)
[2017-02-08] MEDS ORDERED: ALBU18HF2 PO (20:19)
[2017-02-08] MEDS ORDERED: GLIM4TAB3 PO (20:19)
[2017-02-08] MEDS ORDERED: BENZ-16 PO (20:22)
[2017-02-08] MEDS ORDERED: LEVA0.6310 AEROSOL (20:22)
[2017-02-08] MEDS ORDERED: AMLO5TAB2 PO (20:22)
[2017-02-08] MEDS ORDERED: TRAM50TA4 PO (20:22)
[2017-02-08] MEDS ORDERED: METO-279 PO (20:22)
[2017-02-08] MEDS ORDERED: AZIT250T6 PO (20:23)
[2017-02-08] MEDS ORDERED: ACET-62 PO (20:24)
[2017-02-08] MEDS ORDERED: ALBUTEROL/IPRATROPIUM INHAL. 2.5mg-0.5mg/3ml Neb. AEROSOL ONE (20:30)
--- NOTE | 2017-02-08 20:30 | ERPDOC ---
Departure Disposition Decision Date: Feb 08, 2017 Disposition Decision Time: 21:58 Disposition: 01 DISCHARGED HOME, SELF-CARE Impression Impression Impression: Primary Impression: Hypoxia Additional Impression: COPD exacerbation Severity: Moderate Condition: Stable Seen By: Mid-level only Referrals: MARISOL SINGH MD (PCP) EARL HAWK MD (Family) Problems/Meds/Labs Reviewed?: Yes Medications reviewed and manag: Yes Follow up care ordered?: Yes Mental Status: Alert, Oriented HPI - Dyspnea General Chief Complaint: Dyspnea/Respdistress Stated Complaint: DIFFICULTY BREATHING Time Seen by Provider: 20:10 Source: patient Exam Limitations: no limitations HPI - Dyspnea Initial Comments He presents to Er today for c/o SOA. This has been ongoing for the last 5 days. Has not improved despite use of his inhaler and nebulizer machine. He did have a temp up to 102 when it started. Saw his PCP in the office and was given Rx for Zithromax which he did complete and also Tessalon Perles. He has had a productive cough. Has a history of COPD and has been hospitalized for this in the past. His O2 today upon arrival to Er was 84% on RA. He does not wear O2 at home. Occurred At: home Onset/Timing: Gradual Duration: other (Over the last 5 days) Severity: moderate Prior Episodes/Possible Cause: occasional episodes Associated Symptoms: cough, fever/chills (fever when this all started up to 102 ), shortness of breath, weakness, DENIES: chest pain, diaphoresis, headaches, loss of appetite, malaise, nausea/vomiting, rash, seizure, syncope Aspirin Treatment Today: unknown Hx of Similar Symptoms: Yes Allergies: Coded Allergies: No Known Drug Allergies (Verified Allergy, Unknown, 09/17/16) Past History Past Medical History Metabolic: hypertension Respiratory: COPD Neurological: CVA Surgical History General: gallbladder Joint: shoulder Family History Family PMH: FOUND: GA, diabetes, hypertension Vaccines Hx Influenza Vaccination: No Hx Pneumococcal Vaccination: No Social History # of Years: 49 Substance Use Type: does not use Alcohol Intake: none Review of Systems Constitutional Constitutional: fever, weakness, DENIES: chills, dizziness, fatigue ENMT Sinuses: congestion, rhinorrhea Mouth/Throat: DENIES: painful swallowing, scratchy throat, sore throat Cardiovascular Cardiac: DENIES: chest pain, orthopnea Rhythm/Rate: DENIES: irregular beat, palpitations Pulmonary Respiratory: cough, dyspnea, sputum, DENIES: tachypnea GI Upper Abdomen: DENIES: nausea, pain, vomiting Lower Abdomen: DENIES: constipation, diarrhea, pain Integumentary Skin: DENIES: rash Neurological General: DENIES: headache, numbness, tingling, weakness Physical Exam General General Nourishment: well nourished, well developed, appears stated age, no acute distress, adult General Body Habitus: well groomed Vitals and Pain First Documented Vital Signs Date Time Temp Pulse Resp B/P Pulse Ox O2 Delivery O2 Flow Rate FiO2 02/08/17 20:06 97.5 83 32 174/76 86 Room Air 02/08/17 20:10 3.00 Weight: Kilograms: 87.900 Height (feet): 5 Height (inches): 8.00 Triage Pain Scale: RN VS reviewed by Provider: Yes Normal Exams: Neck: Full range of motion, without adenopathy, JVD, bruits or thyromegaly CV: Regular rate and rhythm, without murmur or gallop, Pulses 2+ all extremities, capillary refill, <2 seconds all ext., no pedal edema noted Abdomen: Bowel sounds positive, soft, non-tender, non-distended, no hepatosplenomegaly, masses or bruits noted Lymphatic: No lymphadenopathy, or lymphedema noted Integumentary: No rashes, hives, or bruising noted Neurologic: Patient is alert, and oriented Psychiatric: Patient exhibits, appropriate attention, emotion and affect Respiratory (brief) Respiratory: FOUND: other (Diminished throughout. Is 93% on 3 L per NC, is able to speak in complete sentences, In no respiratory distress.) Differential Diagnoses Considering: Acute Bronchitis, Acute GA, Acute Respiratory Failure, COPD Exacerbation, Influenza, Pneumonia Progress Results/Orders Orders Procedure Category Date Status Time EKG EKG 02/08/17 Logged Cbc W/Auto LAB 02/08/17 Complete Diff-Reflex Manual Bmp - Basic Metabolic LAB 02/08/17 Complete Panel Iv Lock (Ed Only) EDM 02/08/17 Transmitted 20:21 Chest, Pa & Lateral RAD 02/08/17 Taken Troponin I W LAB 02/08/17 Complete Hemolysis Index Methylprednisolone PHA 02/08/17 Complete Sod Succ (Solu-Medrol 20:30 Albuterol/Ipratropium PHA 02/08/17 Complete (Duoneb) 20:30 Albuterol Sulfate PHA 02/08/17 Complete (Proventil 2.5 Mg/3 Ml 21:30 Place In Facility As: ADMIT 02/08/17 Transmitted Lab Results Laboratory Tests Test 02/08/17 20:30 White Blood Count 5.0T/MM3 Red Blood Count 5.22M/MM3 Hemoglobin 15.5GM/DL Hematocrit 45.2% Mean Corpuscular Volume 86.6UM3 Mean Corpuscular Hemoglobin 29.7UUG Mean Corpuscular Hemoglobin Concent 34.3GM/DL RDW Standard Deviation 39.8FL Platelet Count 178T/MM3 Mean Platelet Volume 10.0UM3 Immature Granulocyte % (Auto) 0.2% Neutrophils (%) (Auto) 63.7% Lymphocytes (%) (Auto) 25.5% Monocytes (%) (Auto) 7.6% Eosinophils (%) (Auto) 2.8% Basophils (%) (Auto) 0.2% Absolute Immature Granulocyte (auto 0.01T/MM3 Absolute Neutrophils (auto) 3.2T/MM3 Absolute Lymphocytes (auto) 1.3T/MM3 Absolute Monocytes (auto) 0.4T/MM3 Absolute Eosinophils (auto) 0.1T/MM3 Absolute Basophils (auto) 0.0T/MM3 Turbidity < 20 Sodium Level 147MEQ/L Potassium Level 4.8MEQ/L Chloride Level 109MEQ/L Carbon Dioxide Level 23MEQ/L Anion Gap 15MEQ/L Blood Urea Nitrogen 22.0MG/DL Creatinine 0.9MG/DL Glomerular Filtration Rate Calc 83 BUN/Creatinine Ratio 24RATIO Glucose Level 118MG/DL Calculated Osmolality 286MOSM/KG Calcium Level 9.4MG/DL Icterus Index < 2 Troponin I < 0.012ng/ml Chemistry Specimen Hemolysis 62 Medications Current ED Medications Methylprednisolone Sodium Succinate (Solu-Medrol) 125 mg O ONCE IV Last administered on 02/08/17 20:40; Start 02/08/17 at 20:30; Stop 02/08/17 at 20:31 ; Status DC Albuterol/ Ipratropium (Duoneb) 3 ml O ONCE AEROSOL Last administered on 20:45; Start 02/08/17 at 20:30; Stop 3/19/17 at 20:31; Status DC Albuterol Sulfate (Proventil 2.5 Mg/3 ml) 2.5 mg O ONCE AEROSOL Last administered on 02/08/17t 21:34; Start 02/08/17 at 21:30; Stop 02/08/17 at 21:31 ; Status DC Progress Progress CBC, BMP, and troponin today are normal. Chest xray without pneumonia. He does feel improved after Duoneb and solumedrol. Did repeat Albuterol treatment. Lung sounds have improved but still a little diminished. Did attempt to take him off of the O2 but his sats did fall to 86% on Ra. Spoke with Dr Boogie and he will accept for admission at this time. Xray Xray : Reason for Exam: dyspnea Xray: CXR PA/Lat Interpretation: Normal FELIPE RIOJAS APRN Feb 08, 2017 20:30
[2017-02-08 20:37] LABS: BASOPHILS % (AUTO) 0.2 % (0-2); EOSINOPHILS # (AUTO) 0.1 T/MM3 (0-0.5); EOSINOPHILS % (AUTO) 2.8 % (0-4); HCT - HEMATOCRIT 45.2 % (41-53); HGB - HEMOGLOBIN 15.5 GM/DL (13.5-17.5); IMMATURE GRANULOCYTE # (AUTO) 0.01 T/MM3 (0.00-0.03); IMMATURE GRANULOCYTE % (AUTO) 0.2 % (0.0-0.5); LYMPHOCYTES # (AUTO) 1.3 T/MM3 (1-4.8); LYMPHOCYTES % (AUTO) 25.5 % (23-45); MEAN CORPUSCULAR HGB 29.7 UUG (26-34); MEAN CORPUSCULAR HGB CONC(MCHC 34.3 GM/DL (31-37); MEAN CORPUSCULAR VOLUME 86.6 UM3 (80-100); MONOCYTES # (AUTO) 0.4 T/MM3 (0-0.8); MONOCYTES % (AUTO) 7.6 % (0-9.0); NEUTROPHILS #(AUTO)-ABSOLUTE 3.2 T/MM3 (1.8-7.7); NEUTROPHILS % (AUTO) 63.7 % (33-66); RED BLOOD COUNT 5.22 M/MM3 (4.50-5.90)
[2017-02-08 20:45] LABS: ANION GAP 15 MEQ/L (5-15); BUN/CREATININE RATIO 24 RATIO (6-26); CALCIUM 9.4 MG/DL (8.4-10.2); CHLORIDE 109 MEQ/L (98-107); CO2 - CARBON DIOXIDE 23 MEQ/L (22-30); CREATININE 0.9 MG/DL (0.8-1.5); GLOMERULAR FILTRATION RATE 83; GLUCOSE 118 MG/DL (75-110); POTASSIUM 4.8 MEQ/L (3.6-5); SODIUM 147 MEQ/L (134-144)
--- NOTE | 2017-02-08 20:48 | NUR ---
RT IN WITH PT
--- OUTSIDE RECORDS SUMMARY | 2017-02-08 20:51 | XMS REPORT | Continuity of Care Document ---
Author Author [facility] Organization [facility] Address Unknown Phone Unavailable Allergies Active Description [...] mg=1 tabs, IV Push, q6hr, PRN: Nausea HYDROcodone-acetaminophen([place] 5 mg-325 mg oral tablet) 06/19/2015 06/23/2015 [...] g 20 g= 30 mL, Oral, TID HYDROcodone-acetaminophen([place] 5 mg-325 mg oral tablet) 06/23/2015 07/04/2015 [...] tabs, Oral, Daily, 30 tabs, 0 Refill(s) HYDROcodone-acetaminophen([place] 5 mg-325 mg oral tablet) 1 tabs 06/29/2015 07/29/2015 Oral 1 tabs, Oral, q6hr, for 30 days, PRN: as needed for pain, 120 tabs, 0 Refill(s) ALPRAZolam(Xanax 0.25 mg oral tablet) 1 tabs 07/10/20152014 Oral 0.25 mg 0.25 mg=1 tabs, Oral, BID, for 14 days, PRN: as needed for anxiety, 28 tabs, 0 Refill(s) HYDROcodone-acetaminophen([place] 5 mg-325 mg oral tablet) 1 tabs 08/31/2015 09/10/2015 Oral 1 tabs, Oral, TID, for 10 days, PRN: as needed for pain, 30 tabs, 0 Refill(s) metoprolol(metoprolol succinate 100 mg oral tablet, extended release) 1 tabs 09/27/2015 12/31/2015 Oral 100 mg 100 mg=1 tabs, Oral, Daily , for 90 days, 90 tabs, 2 Refill(s) HYDROcodone-acetaminophen([place] 5 mg-325 mg oral tablet) 1 tabs [...] Joya MD Final 414.01 CORONARY ATHEROSCLEROSIS OF [place] CORONARY ARTERY 06/26/2015 Vini Joya MD Final [...] Status Pt. Type Provider Facility Loc./Unit Complaint [id number] 02/22/2014 07:58:00 02/22/2014 23 :59:59 CLS Outpatient [id number] 02/15/2014 13:00:00 02/15/2014 23 :59:59 CLS Outpatient [id number] 01/04/2014 08:50:00 01/04/2014 23 :59:59 CLS Outpatient
[2017-02-08] MEDS ORDERED: ALBUTEROL INH.SOLN. 2.5mg/3ml (0.083%) Neb. AEROSOL ONE (21:30)
--- OUTSIDE RECORDS SUMMARY | 2017-02-08 22:39 | XMS REPORT | Continuity of Care Document ---
Author Author [facility] Organization [facility] Address Unknown Phone Unavailable Allergies Active Description [...] mg=1 tabs, IV Push, q6hr, PRN: Nausea HYDROcodone-acetaminophen([place] 5 mg-325 mg oral tablet) 06/19/2015 06/23/2015 [...] g 20 g= 30 mL, Oral, TID HYDROcodone-acetaminophen([place] 5 mg-325 mg oral tablet) 06/23/2015 07/04/2015 [...] tabs, Oral, Daily, 30 tabs, 0 Refill(s) HYDROcodone-acetaminophen([place] 5 mg-325 mg oral tablet) 1 tabs 06/29/2015 07/29/2015 Oral 1 tabs, Oral, q6hr, for 30 days, PRN: as needed for pain, 120 tabs, 0 Refill(s) ALPRAZolam(Xanax 0.25 mg oral tablet) 1 tabs 07/10/20152014 Oral 0.25 mg 0.25 mg=1 tabs, Oral, BID, for 14 days, PRN: as needed for anxiety, 28 tabs, 0 Refill(s) HYDROcodone-acetaminophen([place] 5 mg-325 mg oral tablet) 1 tabs 08/31/2015 09/10/2015 Oral 1 tabs, Oral, TID, for 10 days, PRN: as needed for pain, 30 tabs, 0 Refill(s) metoprolol(metoprolol succinate 100 mg oral tablet, extended release) 1 tabs 09/27/2015 12/31/2015 Oral 100 mg 100 mg=1 tabs, Oral, Daily , for 90 days, 90 tabs, 2 Refill(s) HYDROcodone-acetaminophen([place] 5 mg-325 mg oral tablet) 1 tabs [...] Joya MD Final 414.01 CORONARY ATHEROSCLEROSIS OF [place] CORONARY ARTERY 06/26/2015 Vini Joya MD Final [...] Status Pt. Type Provider Facility Loc./Unit Complaint [id number] 02/22/2014 07:58:00 02/22/2014 23 :59:59 CLS Outpatient [id number] 02/15/2014 13:00:00 02/15/2014 23 :59:59 CLS Outpatient [id number] 01/04/2014 08:50:00 01/04/2014 23 :59:59 CLS Outpatient
--- NOTE | 2017-02-08 22:54 | NUR ---
ADMIT JASMIN RN ASSIGNS ROOM 140 TO PT WITH YEVGENIY MORA THE NURSE
--- NOTE | 2017-02-08 23:06 | NUR ---
REPORT GIVEN TO YEVGENIY MORA
--- NOTE | 2017-02-08 23:15 | NUR ---
Admit Pt brought to room by wheelchair from ED on 2 L O2. Ambulated self from wheelchair to bed. Oriented to hospital environment. Will continue to monitor.
[2017-02-08 23:19] VITALS: Ht 172.7 cm; Wt 83.5 kg
[2017-02-08 23:27] VITALS: BP 171/78; PULSE 76; RESP 28; TEMP 97.4; O2SAT 91
[2017-02-08 23:40] VITALS: PULSE 76; RESP 28
[2017-02-09] VITALS (9 sets, daily range): BP systolic 146–172; BP diastolic 71–87; PULSE 82–99; RESP 18–20; TEMP 95.6–96.6; O2SAT 90–95
--- NOTE | 2017-02-09 00:25 | NUR ---
Pt agitation Pt agitated that Dr. Staton is not available immediately. Notified Dr. Staton and asked for diet order. He oked a regular diet. Water, warm milk, and refrigerator meal given to patient. Pt calmed down and appreciated the food. Will continue to monitor.
[2017-02-09] MEDS ORDERED: HYDROCODONE/APAP 5 mg/325 mg TABLET PO PRN (03:45)
[2017-02-09] MEDS ORDERED: ONDANSETRON 4mg/2ml INJECTION IV PRN (03:45)
--- NOTE | 2017-02-09 03:56 | HPPDOC ---
HPI - Adult Date DATE: 02/09/17 TIME: 03:47 General Chief Complaint: cough soa History of Present Illness very pleasant 71 y/o M PTER with increasing SOA and cough since the past Thu. He did see his primary care physician this past week he received Z-Efra and Tessalon Perles.He came in [facility] b/c his cough and soa got to the point he couldn't get any air back in after he was breathing out, it "terrified him" In the ER he got 125 mg IV solumedrol and nebs and is feelign better. He does have known COPD but does not usually need supplemental O2. He was found to be saturating 84% on room air in the emergency room., his sputum has been clear and frothy. He denies chest pain or any known cardiovascular problems as far as heart failure. He did get a coronary bypass surgery as a preventative "as he had chest pain 2 years ago what sounds like angina at that time. Past Medical History Past Medical History coronary artery disease status post CABG COPD, diabetes mellitus type 2, hypertension, hyperlipidemia. Hx CVA Surgical History Patient's Surgical History: stenin in left carotid artery, Coronary bypass surgery cholecystectomy meniscal knee surgery hernia repair rotator cuff surgery 2. A large intestinal tear that was repaired and then reconstructed Current Medications Home Meds Reported Medications Acetaminophen (Acetaminophen) 500 Mg Tablet, 1000 MG PO Q8H Y for PAIN 02/08/17 Azithromycin (Azithromycin) 250 Mg Tablet, 250 MG PO DAILY TAKE TWO TABLETS ON DAY ONE, THEN ONE TABLET DAILY UNTIL ALL TAKEN. 02/08/17 Levalbuterol HCl (Levalbuterol HCl) 0.63 Mg/3 Ml Vial.neb, 0.63 MG AEROSOL PRN 02/08/17 Tramadol HCl (Tramadol HCl) 50 Mg Tablet, 50 MG PO QID Y for PAIN 02/08/17 Amlodipine Besylate (Amlodipine Besylate) 5 Mg Tablet, 5 MG PO BID 02/08/17 Benzonatate (Benzonatate) 100 Mg Capsule, 100 MG PO TID Y for COUGH 02/08/17 Metoprolol Succinate (Metoprolol Succinate) 100 Mg Tab.er.24h, 100 MG PO DAILY 02/08/17 Glimepiride (Glimepiride) 4 Mg Tablet, 4 MG PO DAILY 02/08/17 Atorvastatin Calcium (Atorvastatin Calcium) 40 Mg Tablet, 40 MG PO HS 02/08/17 Albuterol Sulfate (Ventolin HFA 90 mcg/actuation) 18 Gm Hfa.aer.ad, 1 PUFF PO PRN 02/08/17 Lisinopril (Lisinopril) 20 Mg Tablet, 20 MG PO DAILY 06/13/15 Allergies: Coded Allergies: No Known Drug Allergies (Verified Allergy, Unknown, 02/08/17) Family History Family History: nc based on age Social History Smoking Status: Former smoker ( 28-saox-qfvb history, quit smoking 8 years ago.) # of Years: 50 Substance Use Type: does not use Alcohol Intake: none Advance Directives: Yes Full Code, No DPOA for Healthcare Only Review of Systems All Other Systems All Other Systems: Reviewed (remainder of 10-point ROS Neg.) Physical Exam General General Nourishment: apparent age Vital Signs Vital Signs Date Time Temp Pulse Resp B/P Pulse Ox O2 Delivery O2 Flow Rate FiO2 02/08/17 23:40 76 28 02/08/17 23:27 97.4 171/78 91 Nasal Cannula 2.00 Height (Feet): 5 Height (Inches): 8.00 Eyes Brief: FOUND: PERRL Respiratory Brief: FOUND: equal bilaterally Comments Impaired movement bilaterally Cardiovascular (brief) Cardiac Brief: FOUND: pedal edema, regular rate, regular rhythm Abdomen (brief) Abdominal Brief: FOUND: BS normo active x4, soft, NOT FOUND: tender Neurologic (brief) Neurological Brief: FOUND: cranial 2-12 intact, motor, sensory, NOT FOUND: facial droop Neurologic RN Documented GCS Eye Opening: Verbal: Motor: Total: Psychiatric (brief) FOUND: alert, oriented Laboratory Laboratory Tests Test 02/08/17 20:30 White Blood Count 5.0T/MM3 Red Blood Count 5.22M/MM3 Hemoglobin 15.5GM/DL Hematocrit 45.2% Mean Corpuscular Volume 86.6UM3 Mean Corpuscular Hemoglobin 29.7UUG Mean Corpuscular Hemoglobin Concent 34.3GM/DL RDW Standard Deviation 39.8FL Platelet Count 178T/MM3 Mean Platelet Volume 10.0UM3 Immature Granulocyte % (Auto) 0.2% Neutrophils (%) (Auto) 63.7% Lymphocytes (%) (Auto) 25.5% Monocytes (%) (Auto) 7.6% Eosinophils (%) (Auto) 2.8% Basophils (%) (Auto) 0.2% Absolute Immature Granulocyte (auto 0.01T/MM3 Absolute Neutrophils (auto) 3.2T/MM3 Absolute Lymphocytes (auto) 1.3T/MM3 Absolute Monocytes (auto) 0.4T/MM3 Absolute Eosinophils (auto) 0.1T/MM3 Absolute Basophils (auto) 0.0T/MM3 Turbidity < 20 Sodium Level 147MEQ/L Potassium Level 4.8MEQ/L Chloride Level 109MEQ/L Carbon Dioxide Level 23MEQ/L Anion Gap 15MEQ/L Blood Urea Nitrogen 22.0MG/DL Creatinine 0.9MG/DL Glomerular Filtration Rate Calc 83 BUN/Creatinine Ratio 24RATIO Glucose Level 118MG/DL Calculated Osmolality 286MOSM/KG Calcium Level 9.4MG/DL Icterus Index < 2 Troponin I < 0.012ng/ml Chemistry Specimen Hemolysis 62 EKG appears normal to me normal sinus rhythm normal rate axis and normal intervals Radiology chest x-ray shows a left round nodule approximately 2 cm diameter, will probably need CT of his chest to elucidate this. Assessment & Plan Problems: (1) Acute exacerbation of chronic obstructive pulmonary disease (COPD) Status: Acute Assessment & Plan: he's improved with the treatments he has had so far. Continue with prednisone 40 mg daily and recommended taper, oral antibiotics do not appear to be indicated at this point. (2) Coronary artery disease Status: Chronic Assessment & Plan: Continue with aspirin and statin. 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 ASHLEY DONOHUE MD Feb 09, 2017 03:54
[2017-02-09] MEDS: GUAIFENESIN DM PO PRN ×2 (04:07→05:50)
--- NOTE | 2017-02-09 06:47 | NUR ---
Status Pt woke up very frustrated about lack of interventions throughout the night. Pt expected to be woken up for breathing treatments and steroid treatments. Explained that he needs O2 to stay above 90% at this time. Turned on VS machine in room with SAO2 readings. Titrated O2 down to 1 L and pt stayed at 89-92%. Offered a PRN breathing treatment. Respiratory care is with patient at this time. Pt is currently less frustrated, but states that he wants to go home as soon as possible. Will continue to monitor.
[2017-02-09] MEDS: ALBUTEROL INH.SOLN. 2.5mg/3ml (0.083%) Neb. AEROSOL PRN ×2 (06:51→15:38)
--- NOTE | 2017-02-09 06:52 | NUR ---
Cough Gave pt PRN Robitussin for cough. States "it didn't help much."
[2017-02-09] MEDS ORDERED: NORMAL SALINE 100 ML ONE (07:30)
[2017-02-09] MEDS ORDERED: IOHEXOL 300 MG/ML 75ml INJECTION ONE (07:30)
[2017-02-09] MEDS ORDERED: SALINE FLUSH 10ml SYRINGE ONE (07:30)
[2017-02-09] MEDS ORDERED: PredniSONE 20 MG TABLET PO SCH (08:00)
--- NOTE | 2017-02-09 08:16 | DI ---
INDICATION: ITS.REASON: cough, fever PROCEDURE: CHEST 2-VIEWS UPRIGHT (PA \T\ LAT) Encounter: Initial COMPARISON: June 24, 2010 FINDINGS: Stable calcified mass in the superior left lower lobe. Lungs are otherwise grossly clear. There is no pleural effusion or pneumothorax. The heart size, mediastinal contours and pulmonary vascularity are unchanged with prior CABG. IMPRESSION: Stable chest without acute cardiopulmonary disease. .
[2017-02-09] MEDS ORDERED: SENNA + DOCUSATE TAB PO SCH (09:00)
--- NOTE | 2017-02-09 09:20 | DI ---
Indication: ITS.REASON: left sided pulm nodule PROCEDURE: CT CHEST W/CONTRAST: Encounter: Initial Comparison: Chest x-ray dated February 08, 2017 and chest x-ray dated June 24, 2010 Technique: Axial CT images were performed through the chest after the administration of intravenous contrast. Coronal and sagittal two-dimensional reformats. Automated Exposure Control and Iterative Reconstruction dose reducing techniques were utilized. Contrast: Omnipaque 300 75 mL Findings: Large calcified granuloma in the superior segment left lower lobe measuring 2.9 cm in diameter. This is stable dating back to 2009. Linear atelectasis or scarring in the lingula. Lungs are otherwise clear. No pneumonia, pleural effusion or pneumothorax. No worrisome pulmonary nodules or masses. No axillary or mediastinal lymphadenopathy. Thyroid gland appears normal. Heart size is normal. No pericardial effusion. Scattered atherosclerotic plaque in the great vessels. The upper abdomen shows granulomatous disease in the spleen and pancreatic calcifications compatible with old episodes of pancreatitis but no acute findings. Prior CABG. Impression: Benign large calcified granuloma in the left lower lobe. This does not require specific imaging follow-up. No acute cardiopulmonary disease. .
[2017-02-09] MEDS ORDERED: ALBUTEROL/IPRATROPIUM INHAL. 2.5mg-0.5mg/3ml Neb. AEROSOL SCH (15:00)
--- NOTE | 2017-02-09 18:41 | NUR ---
STATUS PT WAS WEANED TO RA TODAY. DENIES SOA. HAS BEEN UP AMBULATING. PT IS A&OX3. CALLS FOR NEEDS.
--- NOTE | 2017-02-09 19:21 | NUR ---
BGM DR. ECHAVARRIA NOTIFIED OF PT'S BLOOD SUGARS. NO NEW ORDERS RECEIVED.
[2017-02-09] MEDS ORDERED: GUAI120018 PO (19:22)
[2017-02-09] MEDS ORDERED: PRED10TA PO (19:22)
[2017-02-09] MEDS ORDERED: IPRA3AMP AEROSOL (19:22)
--- NOTE | 2017-02-09 20:26 | NUR ---
Scripts: This nurse called [facility] at 2022 in [place] and left message on voicemail for scripts ordered by Dr. Maguire.
--- NOTE | 2017-02-09 20:26 | NUR ---
DISCHARGE PT WAS DISCHARGED AT 2019. ACCOMPANIED BY THE . PT WAS EDUCATED ABOUT COPD AND MEDICATION. PT ALERT AND ORIENTED. DENIED ANY PAIN. PT AMBULATING. GAIT STEADY. PT LEFT WITH THE IN A PRIVATE VEHICLE.
--- NOTE | 2017-02-10 09:24 | NUR ---
CM LATE ENTRY FOR 02/09/17. CM VISITED PT. CM EXPLAINED ROLE AND PROVIDED CONTACT INFORMATION. PT DENIES NEEDS. PT IS AWARE TO CONTACT CM IF NEEDS ARISE.
--- NOTE | 2017-02-10 10:24 | NUR ---
TEE CM SPOKE WITH AGUS FROM [facility] REGARDING A FOLLOW UP CALL THEY MADE TO MEDICAL UNIT. CM PROVIDED ICD10 CODE FOR ALBUTEROL NEBULIZER TREATMENTS WHICH WAS FAXED OVER YESTERDAY AT TIME OF D/C FROM [facility]. CM SPOKE WITH PT ABOUT ANOTHER CONCERN AND A NEW SCRIPT FOR SIDRA BEAULIEU WAS FAXED WELL.MEDICATIONS WILL BE READY FOR DIAL POLISHER BY 11:30AM TODAY AND PT IS AWARE. PT IS AWARE TO CONTACT CM IF NEEDS ARISE.
== END 2017-02-09 20:20 | disposition home or self-care (01) | DRG 192 ==
LOC: ED 20:04 → EDHOLD 21:57 → MED 23:15 → OBSVTOIN 02-09 03:41
PROVIDERS: ADMIT Pediatrics; ATTEND Internal Medicine
DX: J44.1 Chronic obstructive pulmonary disease with (acute) exacerbation (principal); E11.9 Type 2 diabetes mellitus without complications; I25.10 Atherosclerotic heart disease of native coronary artery without angina pectoris; I10 Essential (primary) hypertension; E78.5 Hyperlipidemia, unspecified; R91.8 Other nonspecific abnormal finding of lung field; Z95.1 Presence of aortocoronary bypass graft; Z86.73 Personal history of transient ischemic attack (TIA), and cerebral infarction without residual deficits; Z87.891 Personal history of nicotine dependence
CPT/HCPCS: 80048; 82948; 84484; 85025; 93005; 94640; 96374; 99218